=== PATIENT | female | born 1955 | race Caucasian/White ===

== ENCOUNTER 2024-01-06 13:40 | Inpatient (IN) | payer OTHER ==
[2024-01-06 14:53] LABS: BASO % 0.4 % (0-2.0); EOS % 1.9 % (0-4.5); HEMATOCRIT 40.4 % (32.4-45.2); HEMOGLOBIN 13.4 GM/dL (10.7-15.3); LYMPH % 21.1 % (8-40); MCH 29.4 pg (25.7-33.7); MCHC 33.2 g/dl (32.0-36.0); MEAN CELL VOLUME 88.6 fl (80-96); MEAN PLT VOLUME 9.2 fl (7.5-11.1); NEUT % 64.6 % (42.8-82.8); PLATELET COUNT 237 10^3/uL (134-434); RBC 4.56 M/mm3 (3.60-5.2); RDW 14.2 % (11.6-15.6); WHITE BLOOD COUNT 6.7 K/mm3 (4.0-10.0)
[2024-01-06 15:02] LABS: INR 0.96 (0.83-1.09); PROTHROMBIN TIME (PATIENT) 10.9 SEC (9.7-13.0)
[2024-01-06 15:05] LABS: ACTIVATED PTT 30.1 SECONDS (25.2-36.5); CHLORIDE 103 mmol/L (98-107); POTASSIUM 4.6 mmol/L (3.5-5.1); SODIUM 139 mmol/L (136-145)
[2024-01-06 15:06] LABS: CALCIUM 9.1 mg/dL (8.5-10.1)
[2024-01-06 15:07] LABS: ANION GAP 4 mmol/L (4-13); CO2 32 mmol/L (21-32)
[2024-01-06 15:08] LABS: BLOOD UREA NITROGEN 13.2 mg/dL (7-18); GLUCOSE,RANDOM 125 mg/dL (74-106)
[2024-01-06 15:11] LABS: CHOLESTEROL 158 mg/dL (50-200); CREATININE 0.8 mg/dL (0.55-1.3); SGOT/AST 23 U/L (15-37); SGPT/ALT 16 U/L (13-61)
[2024-01-06 15:12] LABS: LDL CHOLESTEROL (ONLY SJRH) 77 mg/dL (5-100); TOT PROT 6.4 g/dl (6.4-8.2)
[2024-01-06 15:13] LABS: BILIRUBIN,TOTAL 0.5 mg/dL (0.2-1); HDL CHOLESTEROL 50 mg/dL (40-60)
[2024-01-06 15:14] LABS: ALK PHOS 72 U/L (45-117)
[2024-01-06 16:10] LABS: PH,URINE 6.5 (5.0-8.0); URINE APPEARANCE CLEAR; URINE BILIRUBIN NEGATIVE (NEGATIVE); URINE COLOR YELLOW; URINE GLUCOSE (UA) NEGATIVE (NEGATIVE); URINE KETONE NEGATIVE (NEGATIVE); URINE LEUK ESTERASE NEGATIVE (NEGATIVE); URINE NITRITE NEGATIVE (NEGATIVE); URINE PROTEIN NEGATIVE (NEGATIVE); URINE UROBILINOGEN 0.2 mg/dL (0.2-1.0)
[2024-01-06 20:55] VITALS: BMI 38.5
[2024-01-06] MEDS ORDERED: ATORVASTATIN CA 10 MG TABLET (FP) PO SCH (22:00)
[2024-01-06] MEDS: HEPARIN NA (PORCINE) 5,000 UNITS/ML 1ML VIAL SQ SCH (22:11)
[2024-01-06] MEDS: ATORVASTATIN CA 40 MG TABLET (FP) PO SCH (22:11)
[2024-01-06] MEDS: risperiDONE 1 MG TABLET PO SCH (22:12)
[2024-01-07 07:43] LABS: BASO % 0.6 % (0-2.0); EOS % 2.8 % (0-4.5); HEMOGLOBIN 13.6 GM/dL (10.7-15.3); LYMPH % 26.2 % (8-40); MCH 29.3 pg (25.7-33.7); MCHC 32.5 g/dl (32.0-36.0); MEAN CELL VOLUME 90.4 fl (80-96); MEAN PLT VOLUME 9.3 fl (7.5-11.1); MONO % 11.8 % (3.8-10.2); NEUT % 58.6 % (42.8-82.8); PLATELET COUNT 190 10^3/uL (134-434); RBC 4.65 M/mm3 (3.60-5.2); WHITE BLOOD COUNT 5.7 K/mm3 (4.0-10.0)
[2024-01-07 08:04] LABS: POTASSIUM 4.1 mmol/L (3.5-5.1)
[2024-01-07 08:18] LABS: CREATININE 0.6 mg/dL (0.55-1.3)
[2024-01-07] MEDS: ASPIRIN COATED 81 MG TABLET.EC PO SCH (10:19)
[2024-01-08 07:57] LABS: MAGNESIUM 2.1 mg/dL (1.8-2.4)
[2024-01-09 11:23] LABS: BASO % 0.6 % (0-2.0); HEMATOCRIT 39.2 % (32.4-45.2); LYMPH % 23.8 % (8-40); MCH 29.4 pg (25.7-33.7); MCHC 33.2 g/dl (32.0-36.0); MEAN CELL VOLUME 88.5 fl (80-96); MEAN PLT VOLUME 9.3 fl (7.5-11.1); MONO % 11.4 % (3.8-10.2); NEUT % 61.2 % (42.8-82.8); PLATELET COUNT 225 10^3/uL (134-434); RBC 4.42 M/mm3 (3.60-5.2); RDW 14.1 % (11.6-15.6); WHITE BLOOD COUNT 6.1 K/mm3 (4.0-10.0)
[2024-01-09 11:44] LABS: POTASSIUM 4.3 mmol/L (3.5-5.1)
[2024-01-09 11:45] LABS: CALCIUM 8.9 mg/dL (8.5-10.1)
[2024-01-09 11:46] LABS: BLOOD UREA NITROGEN 17.7 mg/dL (7-18); MAGNESIUM 2.5 mg/dL (1.8-2.4)
[2024-01-09 11:49] LABS: CREATININE 0.6 mg/dL (0.55-1.3)
[2024-01-09 11:50] LABS: TOT PROT 6.3 g/dl (6.4-8.2)
[2024-01-09 11:51] LABS: BILIRUBIN,TOTAL 0.5 mg/dL (0.2-1)
[2024-01-10 22:05] VITALS: RESP 19
[2024-01-11 14:18] VITALS: BP 150/93; PULSE 132; TEMP 99.3
== END 2024-01-11 14:57 | disposition home or self-care (01) | DRG 47 ==
LOC: JER 13:40 → JERBED 16:04 → J4S 18:45 → OBSVTOIN 01-08 11:37
PROVIDERS: ADMIT Internal Medicine; ATTEND Internal Medicine
DX: G45.9 Transient cerebral ischemic attack, unspecified (principal); G20.A1 Parkinson's disease without dyskinesia, without mention of fluctuations; F20.9 Schizophrenia, unspecified; R47.81 Slurred speech; E78.5 Hyperlipidemia, unspecified; R47.1 Dysarthria and anarthria; I45.5 Other specified heart block
CPT/HCPCS: 36415; 70450-TC; 70496-TC; 70498-TC; 70551-TC; 71045-TC-FY; 80048; 80053; 80061; 81003; 82550; 82962; 83036; 83735; 84443; 84484; 85025; 85610; 85730; 86850; 86900; 86901; 87635; 93005; 93010; 93306-TC; 93880-TC; 97116-GP; 97161-GP; 99291; G0378; J1644; Q9967